=== PATIENT | male | born 1945 | race Caucasian/White ===

== ENCOUNTER 2020-12-17 15:52 | Emergency (ER) | payer MEDICARE, BC ==
[2020-12-17] MEDS ORDERED: Labetalol 100 MG/20 ML MDV IVPUSH ONE ×2 (16:13→17:28)
[2020-12-17] MEDS ORDERED: Sodium Chloride 0.9% 10 ML Syringe FLUSH PRN (16:13)
[2020-12-17] MEDS ORDERED: Oxymetazoline 0.05% Nasal Spray 30 ML Bottle NAS ONE (16:22)
[2020-12-17] MEDS ORDERED: Ondansetron 4 MG/2 ML SDV IVPUSH ONE (17:33)
[2020-12-17] MEDS ORDERED: HYDROmorphone 0.5 MG/0.5 ML Syringe IVPUSH ONE (17:33)
--- NOTE | 2020-12-17 18:05 | EDM.PDOC ---
ED HPI GENERAL MEDICAL PROBLEM - General Chief Complaint: ENT Problem Stated Complaint: NOSE BLEED POST OP Time Seen by Provider: 12/17/20 16:01 Source of Information: Reports: Patient, RN Notes Reviewed - History of Present Illness INITIAL COMMENTS - FREE TEXT/NARRATIVE: 75 yr old male had sinus surgery, Dr Callahan, ENT at [facility] earlier today. He states at time of discharge he was starting to have some bleeding R nare. Discharge staff took a quick look, said "he would be OK" and had him leave. He states the bleeding worsened driving to [place] with mostof the blood from R distal nares and some drainage down the back of his throat as well. Nose Pain Score (Numeric/FACES): 10 - Related Data Allergies Allergy/AdvReac Type Severity Reaction Status Date / Time acetaminophen [From Vicodin] Allergy Hives Verified 12/17/20 16:02 hydrocodone [From Vicodin] Allergy Hives Verified 12/17/20 16:02 Penicillins Allergy Hives Verified 12/17/20 16:01 Past Medical History Cardiovascular History: Reports: Hypertension, VA, Stents Other Cardiovascular History: VA 2012 Respiratory History: Reports: Sleep Apnea Neurological History: Reports: Concussion Endocrine/Metabolic History: Reports: Diabetes, Type II, Obesity/BMI 30+ Oncologic (Cancer) History: Reports: Non-Hodgkin's Lymphoma - Infectious Disease History Infectious Disease History: Reports: Chicken Pox, Mumps - Past Surgical History HEENT Surgical History: Reports: Eye Surgery, Tonsillectomy Other HEENT Surgeries/Procedures: "sinus surgery" GI Surgical History: Reports: Appendectomy, Hernia Repair/Other Other Musculoskeletal Surgeries/Procedures:: right shoulder surgery, disc fused in neck, 3 broken ribs Social & Family History - Tobacco Use Tobacco Use Status *Q: Never Tobacco User Second Hand Smoke Exposure: No - Caffeine Use Caffeine Use: Reports: Coffee - Recreational Drug Use Recreational Drug Use: No ED ROS ENT - Review of Systems Review Of Systems: See Below Constitutional: Denies: Fever, Chills HEENT: Reports: Nosebleed Respiratory: Denies: Shortness of Breath Cardiovascular: Denies: Chest Pain GI/Abdominal: Denies: Abdominal Pain, Nausea, Vomiting Musculoskeletal: Denies: Shoulder Pain, Arm Pain Skin: Denies: Bruising Neurological: Denies: Dizziness ED EXAM, ENT - Physical Exam Exam: See Below General Appearance: Alert, Mild Distress Eye Exam: Bilateral Eye: PERRL Nose: Active Bleeding (mild oozing of blood R nares. Had pt start applying pressure) Mouth/Throat: Normal Inspection, Other (no blood back of throat at time of exam) Respiratory/Chest: No Respiratory Distress, Lungs Clear Cardiovascular: Regular Rate, Rhythm GI/Abdominal: Soft, Non-Tender Extremities: Normal Inspection. No: Pedal Edema Neurological: Alert, Oriented, No Motor/Sensory Deficits Course - Vital Signs Last Recorded V/S: Last Vital Signs Temp 97.3 F 12/17/20 15:58 Pulse 90 12/17/20 18:20 Resp 16 12/17/20 15:58 BP 151/93 H 12/17/20 18:20 Pulse Ox 93 L 12/17/20 18:20 - Orders/Labs/Meds Orders: Active Orders 24 hr Category Date Time Status Peripheral IV Insertion Adult [OM.PC] Stat Oth 12/17/20 16:13 Ordered Labs: Laboratory Tests 12/17/20 Range/Units 16:30 WBC 10.95 H (4.23-9.07) K/mm3 RBC 5.04 (4.63-6.08) M/mm3 Hgb 15.3 (13.7-17.5) gm/dl Hct 43.4 (40.1-51.0) % MCV 86.1 (79.0-92.2) fl MCH 30.4 (25.7-32.2) pg MCHC 35.3 (32.2-35.5) g/dl RDW Std Deviation 40.7 (35.1-43.9) fL Plt Count 214 (163-337) K/mm3 MPV 9.4 (9.4-12.3) fl Neut % (Auto) 89.7 H (34.0-67.9) % Lymph % (Auto) 7.1 L (21.8-53.1) % [place] % (Auto) 3.1 L (5.3-12.2) % Eos % (Auto) 0 L (0.8-7.0) Baso % (Auto) 0.0 L (0.1-1.2) % Neut # (Auto) 9.82 H (1.78-5.38) K/mm3 Lymph # (Auto) 0.78 L (1.32-3.57) K/mm3 [place] # (Auto) 0.34 (0.30-0.82) K/mm3 Eos # (Auto) 0.00 L (0.04-0.54) K/mm3 Baso # (Auto) 0.00 L (0.01-0.08) K/mm3 Manual Slide Review Abnormal smear Meds: Medications Discontinued Medications Generic Name Dose Route Start Last Admin Trade Name Freq PRN Reason Stop Dose Admin Cocaine HCl 4 ml 12/17/20 16:21 12/17/20 18:56 Cocaine 4 Ml Bottle TOP 12/17/20 16:22 Not Given ONETIME ONE Hydromorphone HCl 0.5 mg 12/17/20 17:33 12/17/20 17:41 Hydromorphone 0.5 Mg/0.5 Ml Syringe IVPUSH 12/17/20 17:34 0.5 mg ONETIME ONE Administration Labetalol HCl 20 mg 12/17/20 16:13 12/17/20 16:39 Labetalol 100 Mg/20 Ml Mdv IVPUSH 12/17/20 16:14 20 mg ONETIME ONE Administration Protocol Labetalol HCl 20 mg 12/17/20 17:28 12/17/20 17:42 Labetalol 100 Mg/20 Ml Mdv IVPUSH 12/17/20 17:29 20 mg ONETIME ONE Administration Protocol Ondansetron HCl 4 mg 12/17/20 17:33 12/17/20 17:38 Ondansetron 4 Mg/2 Ml Sdv IVPUSH 12/17/20 17:34 4 mg ONETIME ONE Administration Oxymetazoline HCl 1 ml 12/17/20 16:22 12/17/20 16:39 Oxymetazoline 0.05% Nasal [place] 30 Ml Bottle GEMMA 12/17/20 16:23 1 ml ONETIME ONE Administration Sodium Chloride 10 ml 12/17/20 16:13 12/17/20 17:10 Sodium Chloride 0.9% 10 Ml Syringe FLUSH 10 ml ASDIRECTED PRN Administration Keep Vein Open - Re-Assessments/Exams Free Text/Narrative Re-Assessment/Exam: 12/17/20 18:03 BP very high on arrival, 180/100. Gave a dose of labetalol 20 mg IV, with that B(P 164/96, have ordered and has been given a 2n dose labetalol. I was going to treat with afrin and cocaine and than realize that he has nasal tampons in S/P surgery. Have focused more on him holding pressure. He has not done real well with that due to nasal discomfort. Have ordered dilaudid 0.5 mg IV and no BP is better, 14o's over 82, bleeding has stopped. Have tried to reach Dr Callahan but one call has not answered or called back. Hgb good at 15.4. Discharge instr. as documented. Departure - Departure Time of Disposition: 18:24 Disposition: Home, Self-Care 01 Condition: Fair Clinical Impression: Epistaxis - Discharge Information Instructions: Nosebleed, [id number] Referrals: Steffany Allison PA-C [Primary Care Provider] - Forms: ED Department Discharge Additional Instructions: Try keep head elevated as much as you can this evening as discussed. Strong pressure to nose if needed for any further bleeding. Continue to not take aspirin and plavix. Take your BP meds as previously prescribed. If still having bleeding difficulty tomorrow that is more than slight oozing call Dr Bourne's office or return to ED as needed. Sepsis Event Note (ED) - Evaluation Sepsis Screening Result: No Definite Risk - My Orders Last 24 Hours: My Active Orders 12/17/20 16:13 Peripheral IV Insertion Adult [OM.PC] Stat - Assessment/Plan Last 24 Hours: My Active Orders 12/17/20 16:13 Peripheral IV Insertion Adult [OM.PC] Stat
== END 2020-12-17 18:45 | disposition home or self-care (01) ==
LOC: JD.ED 15:52
DX: R04.0 Epistaxis (principal); I10 Essential (primary) hypertension; I25.2 Old myocardial infarction; E11.9 Type 2 diabetes mellitus without complications; E66.9 Obesity, unspecified; Z68.30 Body mass index [BMI] 30.0-30.9, adult; Z88.6 Allergy status to analgesic agent; Z88.5 Allergy status to narcotic agent; Z88.0 Allergy status to penicillin
CPT/HCPCS: 36415; 85025; 96374; 96375; 99284; A9270; J1170; J2405; J3490; 99283

== ENCOUNTER 2021-12-18 07:42 | Day surgery (SDC) | payer MEDICARE, BC ==
[~2021-12-18 07:42] MED LIST: Acetaminophen 325 MG Tab PO SCH; Lactated Ringers 1,000 ML IV SCH; Lidocaine 1%/Sod Bicarbonate in NS 8.4% 1 ML Syringe IDERM PRN; Pregabalin 25 MG Cap PO SCH; Sodium Chloride 0.9% 10 ML Syringe FLUSH PRN; Sodium Chloride 0.9% 10 ML Syringe FLUSH SCH; oxyCODONE ER 10 MG TAB.ER PO SCH
[2021-12-18] MEDS ORDERED: Etomidate 2 MG/ML 20 ML SDV IVPUSH ONE (07:53)
[2021-12-18] MEDS ORDERED: Lidocaine 1% 6 ML ONE (07:53)
[2021-12-18] MEDS ORDERED: Midazolam 1 MG/ML 2 ML SDV ONE (07:53)
[2021-12-18] MEDS ORDERED: Phenylephrine 1% 10 MG/ML SDV ONE (07:53)
[2021-12-18] MEDS ORDERED: fentaNYL 100 MCG/2 ML SDV ONE ×2 (07:53→09:31)
[2021-12-18] MEDS ORDERED: Rocuronium 50 MG/5 ML Vial ONE (07:53)
[2021-12-18] MEDS ORDERED: Lactated Ringers 1,000 ML ONE (07:53)
[2021-12-18] MEDS ORDERED: ceFAZolin 1 GM Vial ONE (07:53)
[2021-12-18] MEDS ORDERED: ePHEDrine 50 MG/ML SDV ONE (07:53)
[2021-12-18] MEDS ORDERED: Ondansetron 4 MG/2 ML SDV ONE (07:53)
[2021-12-18] MEDS ORDERED: EPINEPHrine 1 MG/ML SDV ONE (07:58)
[2021-12-18] MEDS ORDERED: Ropivacaine 0.5% 5 MG/ML 30 ML SDV ONE (07:58)
[2021-12-18] MEDS ORDERED: Vancomycin 1 GM SDV ONE (08:19)
[2021-12-18] MEDS ORDERED: Propofol 200 MG/20 ML SDV ONE (09:20)
[2021-12-18] MEDS ORDERED: fentaNYL 100 MCG/2 ML SDV IVPUSH PRN (09:42)
[2021-12-18] MEDS ORDERED: ePHEDrine 50 MG/ML SDV IVPUSH PRN (09:42)
[2021-12-18] MEDS ORDERED: Ondansetron 4 MG/2 ML SDV IVPUSH PRN (09:42)
[2021-12-18] MEDS ORDERED: Phenylephrine 1% 10 MG/ML SDV IVPUSH PRN (09:42)
[2021-12-18] MEDS ORDERED: diphenhydrAMINE 50 MG/ML SDV IVPUSH PRN (09:42)
[2021-12-18] MEDS ORDERED: Neostigmine Methylsulfate 10 MG/10 ML MDV ONE (10:31)
[2021-12-18] MEDS ORDERED: Labetalol 100 MG/20 ML MDV ONE (10:43)
[2021-12-18] MEDS ORDERED: hydrALAZINE 20 MG/ML SDV ONE (11:03)
[2021-12-18] MEDS ORDERED: oxyCODONE 5 MG Tab PO ONE (12:30)
== END 2021-12-18 14:19 | disposition home or self-care (01) ==
LOC: JD.SDS 07:42
PROVIDERS: ATTEND Orthopaedic Surgery
DX: M19.012 Primary osteoarthritis, left shoulder (principal); I10 Essential (primary) hypertension; E78.5 Hyperlipidemia, unspecified; E11.9 Type 2 diabetes mellitus without complications; E55.9 Vitamin D deficiency, unspecified; I25.2 Old myocardial infarction; E66.9 Obesity, unspecified; Z88.0 Allergy status to penicillin; Z88.5 Allergy status to narcotic agent; Z88.8 Allergy status to other drugs, medicaments and biological substances; Z95.5 Presence of coronary angioplasty implant and graft; Z87.891 Personal history of nicotine dependence; Z79.02 Long term (current) use of antithrombotics/antiplatelets; Z68.28 Body mass index [BMI] 28.0-28.9, adult; Z79.899 Other long term (current) drug therapy
CPT/HCPCS: 23472; 36415; 73020; 76000; 82947; 85610; 85730; 97161; A9270; C1713; C1769; C1776; J0171; J0360; J0690; J2250; J2370; J2405; J2704; J2710; J2795; J3010; J3370; J3490; J7120; 01638; 64415; 76942; 99100

== ENCOUNTER 2022-08-03 17:48 | Emergency (ER) | payer MEDICARE, BC ==
[2022-08-03] MEDS ORDERED: Sodium Chloride 0.9% 10 ML Syringe FLUSH PRN (18:11)
[2022-08-03] MEDS ORDERED: Sodium Chloride 0.9% 1,000 ML IV SCH (18:45)
== END 2022-08-03 20:35 | disposition home or self-care (01) ==
LOC: JD.ED 17:48
DX: G45.9 Transient cerebral ischemic attack, unspecified (principal); E11.9 Type 2 diabetes mellitus without complications; I25.2 Old myocardial infarction; E66.9 Obesity, unspecified; Z68.27 Body mass index [BMI] 27.0-27.9, adult; Z88.0 Allergy status to penicillin; Z88.8 Allergy status to other drugs, medicaments and biological substances; Z88.6 Allergy status to analgesic agent
CPT/HCPCS: 36415; 70450; 80053; 82947; 85025; 85610; 93005; 96360; 99284; J3490; J7030; 93010

== ENCOUNTER 2022-11-10 12:08 | Day surgery (SDC) | payer MEDICARE, BC ==
[~2022-11-10 12:08] MED LIST changes: -Acetaminophen 325 MG Tab PO SCH; -Pregabalin 25 MG Cap PO SCH; -oxyCODONE ER 10 MG TAB.ER PO SCH
[2022-11-10] MEDS ORDERED: Lidocaine 1% 4 ML ONE (13:24)
[2022-11-10] MEDS ORDERED: Propofol 200 MG/20 ML SDV ONE (13:25)
[2022-11-10] MEDS ORDERED: fentaNYL 100 MCG/2 ML SDV ONE (13:26)
[2022-11-10] MEDS ORDERED: Lidocaine 1% 10 ML MDV ONE (13:29)
[2022-11-10] MEDS ORDERED: Triamcinolone Acetonide 40 MG/ML 1 ML SDV ONE (13:30)
[2022-11-10] MEDS ORDERED: ceFAZolin 2 GM Vial ONE (13:40)
[2022-11-10] MEDS: Bupivacaine 0.25% 10 ML SDV ONE ×2 (13:43→13:50)
== END 2022-11-10 14:54 | disposition home or self-care (01) ==
LOC: JD.SDS 12:08
PROVIDERS: ATTEND Orthopaedic Surgery
DX: M65.331 Trigger finger, right middle finger (principal); G56.03 Carpal tunnel syndrome, bilateral upper limbs; G56.13 Other lesions of median nerve, bilateral upper limbs; D22.9 Melanocytic nevi, unspecified; I10 Essential (primary) hypertension; I25.2 Old myocardial infarction; E11.9 Type 2 diabetes mellitus without complications; E78.5 Hyperlipidemia, unspecified; G47.33 Obstructive sleep apnea (adult) (pediatric); M19.90 Unspecified osteoarthritis, unspecified site; G45.9 Transient cerebral ischemic attack, unspecified; E55.9 Vitamin D deficiency, unspecified; E66.9 Obesity, unspecified; Z88.0 Allergy status to penicillin; Z87.891 Personal history of nicotine dependence; Z88.1 Allergy status to other antibiotic agents; Z88.5 Allergy status to narcotic agent; Z88.8 Allergy status to other drugs, medicaments and biological substances; Z79.01 Long term (current) use of anticoagulants; Z79.02 Long term (current) use of antithrombotics/antiplatelets; Z79.899 Other long term (current) drug therapy; Z90.49 Acquired absence of other specified parts of digestive tract; Z98.49 Cataract extraction status, unspecified eye; Z90.89 Acquired absence of other organs; Z79.84 Long term (current) use of oral hypoglycemic drugs; Z68.27 Body mass index [BMI] 27.0-27.9, adult
CPT/HCPCS: 20526; 26055; 64721; 82947; J0690; J2704; J3010; J3301; J3490; J7120; 01810; 99100

== ENCOUNTER 2022-12-31 23:23 | Emergency (ER) | payer MEDICARE, BC | END 2023-01-01 01:30 | disposition home or self-care (01) | LOC: JD.ED 23:23 | DX: G89.18 Other acute postprocedural pain (principal); M54.6 Pain in thoracic spine; R53.1 Weakness; R32 Unspecified urinary incontinence; I25.10 Atherosclerotic heart disease of native coronary artery without angina pectoris; I10 Essential (primary) hypertension; I25.2 Old myocardial infarction; E78.00 Pure hypercholesterolemia, unspecified; E11.9 Type 2 diabetes mellitus without complications; Z86.16 Personal history of COVID-19; Z87.891 Personal history of nicotine dependence; Z88.8 Allergy status to other drugs, medicaments and biological substances; Z88.1 Allergy status to other antibiotic agents; Z88.5 Allergy status to narcotic agent; Z88.0 Allergy status to penicillin; Z79.02 Long term (current) use of antithrombotics/antiplatelets; Z79.82 Long term (current) use of aspirin; Z79.899 Other long term (current) drug therapy; Z98.890 Other specified postprocedural states | CPT/HCPCS: 99283; 99285 ==

== ENCOUNTER 2023-03-22 11:36 | Emergency (ER) | payer MEDICARE, BC | END 2023-03-22 12:50 | disposition home or self-care (01) | LOC: JD.ED 11:36 | DX: R10.12 Left upper quadrant pain (principal); B02.23 Postherpetic polyneuropathy; I25.10 Atherosclerotic heart disease of native coronary artery without angina pectoris; E78.00 Pure hypercholesterolemia, unspecified; I10 Essential (primary) hypertension; I25.2 Old myocardial infarction; E11.9 Type 2 diabetes mellitus without complications; Z86.16 Personal history of COVID-19; Z79.82 Long term (current) use of aspirin; Z79.84 Long term (current) use of oral hypoglycemic drugs; Z79.899 Other long term (current) drug therapy; Z88.1 Allergy status to other antibiotic agents; Z88.0 Allergy status to penicillin; Z88.8 Allergy status to other drugs, medicaments and biological substances | CPT/HCPCS: 99283 ==

== ENCOUNTER 2023-04-13 14:20 | Emergency (ER) | payer MEDICARE, BC ==
[2023-04-13 16:44] LABS: BASOPHILS PERCENT AUTO 0.5 % (0.0-1.0); EOSINOPHILS ABSOLUTE AUTO 0.2 K/mm3 (0.0-0.4); EOSINOPHILS PERCENT AUTO 3.6 % (0.0-6.0); HEMATOCRIT 38.6 % (42.0-52.0); HEMOGLOBIN 13.5 gm/dl (14.0-18.0); IMMATURE GRAN ABSOLUTE AUTO 0.02 K/mm3 (0.00-0.05); IMMATURE GRAN PERCENT AUTO 0.3 % (0.0-0.4); LYMPHOCYTES ABSOLUTE AUTO 1.8 K/mm3 (1.0-4.8); LYMPHOCYTES PERCENT AUTO 30.8 % (24.0-44.0); MEAN CORPUSCULAR HEMOGLOBIN 31.1 pg (28.0-32.0); MEAN CORPUSCULAR VOLUME 88.9 fl (83.0-99.0); MEAN PLATELET VOLUME 8.9 fl (9.4-12.4); MONOCYTES ABSOLUTE AUTO 0.5 K/mm3 (0.0-0.8); NEUTROPHILS ABSOLUTE AUTO 3.4 K/mm3 (1.8-7.7); NEUTROPHILS PERCENT AUTO 56.8 % (41.0-71.0); PLATELET COUNT,PLT 162 K/mm3 (150-400); RED BLOOD CELL COUNT 4.34 M/mm3 (4.52-5.90); WHITE BLOOD CELL COUNT,WBC 5.91 K/mm3 (3.9-11.3)
[2023-04-13 17:09] LABS: ALBUMIN 3.6 g/dl (3.4-5.0); ANION GAP 11.8 (5-15); BILIRUBIN TOTAL 1.1 mg/dL (0.2-1.0); BUN/CREATININE RATIO 13.1 (14-18); CALCIUM 9.3 mg/dL (8.5-10.1); CREATININE 1.3 mg/dL (0.7-1.3); EST CRCL DRUG DOSING (CG) 49.88 mL/min; POTASSIUM,K 3.8 mEq/L (3.5-5.1); PROTEIN TOTAL,TP 7.2 g/dl (6.4-8.2)
[2023-04-13 17:14] LABS: INR 0.95; PROTHROMBIN TIME 10.2 SECONDS (9.7-12.0)
[2023-04-13 17:15] LABS: PTT,PARTIAL THROMBOPLSTIN TIME 23.7 SECONDS (21.7-31.4)
[2023-04-13 18:22] LABS: APPEARANCE,URINE SLT CLOUDY (Clear); BILIRUBIN,URINE NEGATIVE (Negative); COLOR,URINE YELLOW (Yellow); GLUCOSE,URINE TRACE (Negative); KETONES,URINE TRACE (Negative); LEUKOCYTE ESTERASE,URINE NEGATIVE (Negative); NITRITE,URINE NEGATIVE (Negative); OCCULT BLOOD,URINE NEGATIVE (Negative); PH,URINE 6.5 (5.0-8.0); PROTEIN,URINE 2+ (Negative)
[2023-04-13] MEDS ORDERED: Sodium Chloride 0.9% 10 ML Syringe FLUSH ONE (18:32)
[2023-04-13] MEDS ORDERED: Iopamidol 612 MG/ML 100 ML Bottle IVPUSH ONE (18:32)
[2023-04-13 18:40] LABS: BACTERIA,URINE MANY /hpf (FEW); RBC,URINE 0-5 /hpf (0-5); SQUAMOUS EPITHELIAL CELLS,UR 0-5 /hpf (0-5); WBC,URINE 0-5 /hpf (0-5)
[2023-04-13 18:41] LABS: AMORPHOUS SEDIMENT,URINE MANY /hpf (NOT SEEN); MUCUS,URINE FEW /hpf (FEW)
== END 2023-04-13 19:39 | disposition home or self-care (01) ==
LOC: JD.ED 14:20
DX: K57.30 Diverticulosis of large intestine without perforation or abscess without bleeding (principal); I25.10 Atherosclerotic heart disease of native coronary artery without angina pectoris; E78.00 Pure hypercholesterolemia, unspecified; I25.2 Old myocardial infarction; I10 Essential (primary) hypertension; E11.9 Type 2 diabetes mellitus without complications; Z86.73 Personal history of transient ischemic attack (TIA), and cerebral infarction without residual deficits; Z86.16 Personal history of COVID-19; Z95.5 Presence of coronary angioplasty implant and graft; Z79.02 Long term (current) use of antithrombotics/antiplatelets; Z79.82 Long term (current) use of aspirin; Z79.84 Long term (current) use of oral hypoglycemic drugs; Z79.899 Other long term (current) drug therapy; Z88.0 Allergy status to penicillin; Z88.1 Allergy status to other antibiotic agents; Z88.8 Allergy status to other drugs, medicaments and biological substances
CPT/HCPCS: 36415; 71046; 74019; 74177; 80053; 81001; 83690; 84484; 85025; 85379; 85610; 85730; 93005; 99285; J3490; Q9967; 93010; 99284

== ENCOUNTER 2023-06-24 18:08 | Emergency (ER) | payer MEDICARE, BC ==
[2023-06-24] MEDS ORDERED: Ibuprofen 600 MG Tab PO ONE (19:03)
[2023-06-24] MEDS ORDERED: Dextrose 5%-0.9% NaCl 1,000 ML IV SCH (19:15)
[2023-06-24 19:26] LABS: CORONAVIRUS COVID-19 NAA NEGATIVE (NEGATIVE); INFLUENZA A NAA POSITIVE (NEGATIVE); RESPIRATORY SYNCYTIAL VIR NAA NEGATIVE (NEGATIVE)
[2023-06-24 19:34] LABS: BASOPHILS PERCENT AUTO 0.3 % (0.0-1.0); EOSINOPHILS PERCENT AUTO 0.2 % (0.0-6.0); HEMATOCRIT 39.6 % (42.0-52.0); HEMOGLOBIN 13.8 gm/dl (14.0-18.0); IMMATURE GRAN ABSOLUTE AUTO 0.01 K/mm3 (0.00-0.05); IMMATURE GRAN PERCENT AUTO 0.1 % (0.0-0.4); LYMPHOCYTES ABSOLUTE AUTO 0.8 K/mm3 (1.0-4.8); LYMPHOCYTES PERCENT AUTO 9.1 % (24.0-44.0); MEAN CORPUSCULAR HEMOGLOBIN 30.2 pg (28.0-32.0); MEAN CORPUSCULAR HGB CONC 34.8 g/dl (32.0-36.0); MEAN CORPUSCULAR VOLUME 86.7 fl (83.0-99.0); MEAN PLATELET VOLUME 8.9 fl (9.4-12.4); MONOCYTES ABSOLUTE AUTO 1.1 K/mm3 (0.0-0.8); MONOCYTES PERCENT AUTO 11.3 % (0.0-8.0); NEUTROPHILS ABSOLUTE AUTO 7.3 K/mm3 (1.8-7.7); PLATELET COUNT,PLT 160 K/mm3 (150-400); RED BLOOD CELL COUNT 4.57 M/mm3 (4.52-5.90); WHITE BLOOD CELL COUNT,WBC 9.26 K/mm3 (3.9-11.3)
[2023-06-24 19:50] LABS: HEMOGLOBIN A1C 7.5 %
[2023-06-24 19:53] LABS: INR 1.03
[2023-06-24 19:54] LABS: PTT,PARTIAL THROMBOPLSTIN TIME 24.7 SECONDS (21.7-31.4)
[2023-06-24 20:03] LABS: ALBUMIN 3.5 g/dl (3.4-5.0); ANION GAP 14.8 (5-15); BILIRUBIN TOTAL 1.6 mg/dL (0.2-1.0); BUN/CREATININE RATIO 12.7 (14-18); C-REACTIVE PROTEIN 2.7 mg/dL (<1.0); CREATININE 1.1 mg/dL (0.7-1.3); EST CRCL DRUG DOSING (CG) 58.95 mL/min; MAGNESIUM 1.6 mg/dL (1.8-2.4); POTASSIUM,K 3.8 mEq/L (3.5-5.1); PROTEIN TOTAL,TP 7.2 g/dl (6.4-8.2)
[2023-06-24] MEDS ORDERED: Oseltamivir 75 MG Cap PO ONE (20:18)
== END 2023-06-24 20:42 | disposition home or self-care (01) ==
LOC: JD.ED 18:08
DX: J10.1 Influenza due to other identified influenza virus with other respiratory manifestations (principal); I25.10 Atherosclerotic heart disease of native coronary artery without angina pectoris; I10 Essential (primary) hypertension; I25.2 Old myocardial infarction; E78.00 Pure hypercholesterolemia, unspecified; E11.9 Type 2 diabetes mellitus without complications; Z86.16 Personal history of COVID-19; Z88.8 Allergy status to other drugs, medicaments and biological substances; Z88.1 Allergy status to other antibiotic agents; Z88.5 Allergy status to narcotic agent; Z88.0 Allergy status to penicillin; Z79.899 Other long term (current) drug therapy; Z79.82 Long term (current) use of aspirin; Z79.84 Long term (current) use of oral hypoglycemic drugs; Z79.02 Long term (current) use of antithrombotics/antiplatelets; Z20.822 Contact with and (suspected) exposure to COVID-19
CPT/HCPCS: 0241U; 36415; 71045; 80053; 83036; 83735; 83880; 84484; 85025; 85610; 85730; 86140; 87040; 93005; 96360; 99285; A9270; J7042; 93010; 99284

== ENCOUNTER 2023-10-28 04:53 | Emergency (ER) | payer MEDICARE, BC ==
[2023-10-28 06:57] LABS: CORONAVIRUS COVID-19 NAA NEGATIVE (NEGATIVE); INFLUENZA A NAA NEGATIVE (NEGATIVE); RESPIRATORY SYNCYTIAL VIR NAA NEGATIVE (NEGATIVE)
== END 2023-10-28 07:06 | disposition home or self-care (01) ==
LOC: JD.ED 04:53
DX: J02.8 Acute pharyngitis due to other specified organisms (principal); H66.001 Acute suppurative otitis media without spontaneous rupture of ear drum, right ear; I10 Essential (primary) hypertension; E78.00 Pure hypercholesterolemia, unspecified; I25.10 Atherosclerotic heart disease of native coronary artery without angina pectoris; I25.2 Old myocardial infarction; Z88.6 Allergy status to analgesic agent; Z88.8 Allergy status to other drugs, medicaments and biological substances; Z88.0 Allergy status to penicillin; Z88.5 Allergy status to narcotic agent; Z79.02 Long term (current) use of antithrombotics/antiplatelets; Z79.84 Long term (current) use of oral hypoglycemic drugs; Z79.899 Other long term (current) drug therapy; Z95.5 Presence of coronary angioplasty implant and graft; Z86.73 Personal history of transient ischemic attack (TIA), and cerebral infarction without residual deficits; Z86.16 Personal history of COVID-19
CPT/HCPCS: 0241U; 87651; 99283

== ENCOUNTER 2025-03-17 12:51 | Emergency (ER) | payer MEDICARE, BC ==
[2025-03-17] MEDS ORDERED: Sodium Chloride 0.9% 10 ML Syringe FLUSH PRN (13:24)
[2025-03-17 14:12] LABS: BASOPHILS ABSOLUTE AUTO 0.0 K/mm3 (0.0-0.2); BASOPHILS PERCENT AUTO 0.5 % (0.0-1.0); EOSINOPHILS ABSOLUTE AUTO 0.1 K/mm3 (0.0-0.4); EOSINOPHILS PERCENT AUTO 1.7 % (0.0-6.0); IMMATURE GRAN ABSOLUTE AUTO 0.02 K/mm3 (0.00-0.05); IMMATURE GRAN PERCENT AUTO 0.3 % (0.0-0.4); LYMPHOCYTES ABSOLUTE AUTO 2.0 K/mm3 (1.0-4.8); LYMPHOCYTES PERCENT AUTO 30.7 % (24.0-44.0); MEAN PLATELET VOLUME 9.0 fl (9.4-12.4); MONOCYTES ABSOLUTE AUTO 0.6 K/mm3 (0.0-0.8); MONOCYTES PERCENT AUTO 9.7 % (0.0-8.0); NEUTROPHILS ABSOLUTE AUTO 3.8 K/mm3 (1.8-7.7); NEUTROPHILS PERCENT AUTO 57.1 % (41.0-71.0); NRBC ABSOLUTE 0.00 (0.00-0.02); NRBC PERCENT 0.0 % (0.0-0.2); PLATELET COUNT,PLT 183 K/mm3 (150-400); RED BLOOD CELL COUNT 4.83 M/mm3 (4.52-5.90); WHITE BLOOD CELL COUNT,WBC 6.57 K/mm3 (3.9-11.3)
[2025-03-17 14:30] LABS: APPEARANCE,URINE CLEAR (Clear); GLUCOSE,URINE NEGATIVE (Negative); OCCULT BLOOD,URINE NEGATIVE (Negative)
[2025-03-17 14:39] LABS: A/G RATIO 1.2 (1-2); ALANINE AMINOTRANSFERASE,ALT 24.0 U/L (16-63); ASPARTATE AMNIOTRANSFERASE,AST 20.0 U/L (15-37); BILIRUBIN TOTAL 1.2 mg/dL (0.2-1.0); BLOOD UREA NITROGEN,BUN 17.0 mg/dL (7-18); CARBON DIOXIDE,CO2 30.0 mEq/L (21-32); CHLORIDE,CL 103.0 mEq/L (98-107); CREATININE 1.2 mg/dL (0.7-1.3); EST CRCL DRUG DOSING (CG) 52.29 mL/min; ESTIMATED GFR 61.0 mL/min (>60); GLUCOSE RANDOM 113.0 mg/dL (70-99); POTASSIUM,K 3.8 mEq/L (3.5-5.1); PROTEIN TOTAL,TP 7.2 g/dl (6.4-8.2); SODIUM,NA 142.0 mEq/L (136-145)
[2025-03-17 14:53] LABS: EPITHELIAL CELLS,URINE 0-5 /hpf (0-5)
[2025-03-17] MEDS: Sodium Chloride 0.9% 10 ML Syringe FLUSH ONE (15:13)
[2025-03-17] MEDS: Iopamidol 755 Mg/ML 100 ML Bottle IVPUSH ONE (15:13)
== END 2025-03-17 17:55 | disposition home or self-care (01) ==
LOC: JD.ED 12:51
DX: R20.2 Paresthesia of skin (principal); I10 Essential (primary) hypertension; I25.2 Old myocardial infarction; E78.00 Pure hypercholesterolemia, unspecified; E11.9 Type 2 diabetes mellitus without complications; Z88.0 Allergy status to penicillin; Z88.1 Allergy status to other antibiotic agents; Z88.8 Allergy status to other drugs, medicaments and biological substances; Z79.84 Long term (current) use of oral hypoglycemic drugs; Z79.899 Other long term (current) drug therapy; Z86.16 Personal history of COVID-19; Z90.49 Acquired absence of other specified parts of digestive tract
CPT/HCPCS: 36415; 70450; 70496; 70498; 80053; 81001; 82947; 83735; 85025; 93005; 93971; 99284; J7030; Q9967